=== PATIENT | female | born 1995 | race Caucasian/White ===

== ENCOUNTER 2018-01-13 15:12 | Emergency (ER) | payer SELFPAY ==
[2018-01-13] MEDS ORDERED: Rabies Vaccine Human 2.5 UNITS VIAL IM ONE (16:00)
[2018-01-13] MEDS ORDERED: Rabies Immune Globulin 1500 UNITS/10 ML VIAL IM SCH (16:00)
[2018-01-16] MEDS ORDERED: Rabies Vaccine Human 2.5 UNITS VIAL IM ONE (16:45)
== END 2018-01-13 17:56 | disposition home or self-care (01) ==
LOC: ERS 15:12
DX: S61.231A Puncture wound without foreign body of left index finger without damage to nail, initial encounter (principal); Z20.3 Contact with and (suspected) exposure to rabies; W55.01XA Bitten by cat, initial encounter
CPT/HCPCS: 90375; 90471; 90675; 96372

== ENCOUNTER → 2018-01-20 | Day surgery (SDC) | payer SELFPAY ==
[~2018-01-20] MED LIST: Rabies Vaccine Human 2.5 UNITS VIAL IM ONE
== END ==
LOC: ER/OP 14:55
PROVIDERS: ATTEND Physician Assistant
DX: Z23 Encounter for immunization (principal)
CPT/HCPCS: 90471; 90675

== ENCOUNTER → 2018-01-27 | Day surgery (SDC) | payer SELFPAY | LOC: ER/OP 16:48 | PROVIDERS: ATTEND Nurse Practitioner Family | DX: Z23 Encounter for immunization (principal) | CPT/HCPCS: 90471; 90675 ==

== ENCOUNTER → 2024-03-09 | Day surgery (SDC) | payer BC, SELFPAY ==
[~2024-03-09] MED LIST changes: +PALONOSETRON HCL 0.05 MG/ML 5 ML VIAL ONE; -Rabies Vaccine Human 2.5 UNITS VIAL IM ONE
[2024-03-09 09:59] VITALS: BP 141/74; TEMP 98
[2024-03-09] MEDS: PALONOSETRON HCL 0.05 MG/ML 5 ML VIAL IVP SCH (10:09)
[2024-03-09] MEDS: Fosaprepitant Dimeglumine 150 MG in 0.9 % Sodium Chloride 145 ML IVPB SCH (10:30)
[2024-03-09] MEDS: diphenhydrAMINE 50 MG in Sodium Chloride 0.9% 50 ML IVPB SCH (10:33)
[2024-03-09] MEDS: SODIUM CHLORIDE 0.9% IVPB SCH ×2 (11:27→11:28)
[2024-03-09] MEDS: DOCETAXEL IVPB SCH (11:27)
[2024-03-09] MEDS: CARBOPLATIN IVPB SCH (11:28)
== END ==
LOC: ONC/OP 08:39
PROVIDERS: ATTEND Internal Medicine Hematology & Oncology
DX: Z51.11 Encounter for antineoplastic chemotherapy (principal); C50.311 Malignant neoplasm of lower-inner quadrant of right female breast
CPT/HCPCS: 96367; 96375; 96376; 96413; 96417; J1100; J1200; J1453; J1642; J2469; J7050; J9045; J9171; Q5117

== ENCOUNTER 2024-03-30 08:57 | Day surgery (SDC) | payer BC, SELFPAY ==
[2024-03-30 09:26] VITALS: BP 140/70; TEMP 98.1
[2024-03-30] MEDS ORDERED: PALONOSETRON HCL 0.05 MG/ML 5 ML VIAL ONE (10:56)
[2024-03-30] MEDS: Fosaprepitant Dimeglumine 150 MG in 0.9 % Sodium Chloride 145 ML IVPB SCH (10:58)
[2024-03-30] MEDS: PALONOSETRON HCL 0.05 MG/ML 5 ML VIAL IVP SCH (10:58)
[2024-03-30] MEDS: SODIUM CHLORIDE 0.9% IVPB SCH ×3 (11:53→11:56)
[2024-03-30] MEDS: DOCETAXEL IVPB SCH (11:53)
[2024-03-30] MEDS: CARBOPLATIN IVPB SCH (11:55)
[2024-03-30] MEDS: TRASTUZUMAB ANNS IVPB SCH (11:56)
== END 2024-03-30 15:43 | disposition home or self-care (01) ==
LOC: ONC/OP 08:57
PROVIDERS: ATTEND Internal Medicine Hematology & Oncology
DX: Z51.11 Encounter for antineoplastic chemotherapy (principal); C50.311 Malignant neoplasm of lower-inner quadrant of right female breast
CPT/HCPCS: 96367; 96375; 96413; 96417; J1100; J1453; J1642; J2469; J7050; J9045; J9171; Q5117

== ENCOUNTER → 2024-04-20 | Day surgery (SDC) | payer BC ==
[~2024-04-20] MED LIST changes: +diphenhydrAMINE 25 MG CAP ONE; +diphenhydrAMINE 25 MG CAP PO SCH
[2024-04-20 10:13] VITALS: BP 140/70; TEMP 98.7
[2024-04-20] MEDS: PALONOSETRON HCL 0.05 MG/ML 5 ML VIAL IVP SCH (10:17)
[2024-04-20] MEDS: Fosaprepitant Dimeglumine 150 MG in 0.9 % Sodium Chloride 145 ML IVPB SCH (10:23)
[2024-04-20] MEDS: SODIUM CHLORIDE 0.9% IVPB SCH ×3 (11:16→11:18)
[2024-04-20] MEDS: TRASTUZUMAB ANNS IVPB SCH (11:16)
[2024-04-20] MEDS: CARBOPLATIN IVPB SCH (11:17)
[2024-04-20] MEDS: DOCETAXEL IVPB SCH (11:18)
== END ==
LOC: ONC/OP 09:18
PROVIDERS: ATTEND Internal Medicine Hematology & Oncology
DX: Z51.11 Encounter for antineoplastic chemotherapy (principal); C50.311 Malignant neoplasm of lower-inner quadrant of right female breast
CPT/HCPCS: 96367; 96375; 96413; 96417; J1100; J1453; J1642; J2469; J7050; J9045; J9171; Q5117

== ENCOUNTER 2024-04-21 14:02 | Day surgery (SDC) | payer BC ==
[2024-04-21] MEDS: PEGFILGRASTIM-JMDB 6 MG/0.6 ML SYRINGE SQ SCH (14:22)
[2024-04-21 14:26] VITALS: BP 131/63; TEMP 97.7
== END 2024-04-21 14:27 | disposition home or self-care (01) ==
LOC: ONC/OP 14:02
PROVIDERS: ATTEND Internal Medicine Hematology & Oncology
DX: C50.311 Malignant neoplasm of lower-inner quadrant of right female breast (principal)
CPT/HCPCS: 96372; Q5108

== ENCOUNTER 2024-05-11 08:59 | Day surgery (SDC) | payer BC ==
[2024-05-11] MEDS ORDERED: PALONOSETRON HCL 0.05 MG/ML 5 ML VIAL IVP SCH (09:15)
[2024-05-11] MEDS ORDERED: SODIUM CHLORIDE 0.9% IVPB SCH (09:15)
[2024-05-11] MEDS ORDERED: DOCETAXEL IVPB SCH (09:15)
[2024-05-11 09:40] VITALS: BP 147/73; TEMP 98.3
[2024-05-11] MEDS: diphenhydrAMINE 25 MG in Sodium Chloride 0.9% 50 ML IVPB SCH (10:34)
[2024-05-11] MEDS: Fosaprepitant Dimeglumine 150 MG in 0.9 % Sodium Chloride 145 ML IVPB SCH (10:34)
[2024-05-11] MEDS ORDERED: PALONOSETRON HCL 0.05 MG/ML 5 ML VIAL ONE (10:53)
[2024-05-11] MEDS: DOCETAXEL IVPB SCH (11:56)
[2024-05-11] MEDS: SODIUM CHLORIDE 0.9% IVPB SCH ×3 (11:56→12:01)
[2024-05-11] MEDS: CARBOPLATIN IVPB SCH (12:00)
[2024-05-11] MEDS: TRASTUZUMAB ANNS IVPB SCH (12:01)
== END 2024-05-11 15:52 | disposition home or self-care (01) ==
LOC: ONC/OP 08:59
PROVIDERS: ATTEND Internal Medicine Hematology & Oncology
DX: Z51.11 Encounter for antineoplastic chemotherapy (principal); C50.311 Malignant neoplasm of lower-inner quadrant of right female breast
CPT/HCPCS: 96367; 96375; 96413; 96417; J1100; J1200; J1453; J1642; J2469; J7050; J9045; J9171; Q5117

== ENCOUNTER 2024-05-12 12:15 | Day surgery (SDC) | payer BC ==
[2024-05-12] MEDS: PEGFILGRASTIM-JMDB 6 MG/0.6 ML SYRINGE SQ SCH (12:40)
[2024-05-12 12:58] VITALS: BP 145/67; TEMP 98
== END 2024-05-12 14:57 | disposition home or self-care (01) ==
LOC: ONC/OP 12:15
PROVIDERS: ATTEND Internal Medicine Hematology & Oncology
DX: C50.311 Malignant neoplasm of lower-inner quadrant of right female breast (principal)
CPT/HCPCS: 96372; Q5108

== ENCOUNTER 2024-06-01 08:59 | Day surgery (SDC) | payer BC ==
[2024-06-01] MEDS: Fosaprepitant Dimeglumine 150 MG in 0.9 % Sodium Chloride 145 ML IVPB SCH (10:25)
[2024-06-01 11:24] VITALS: BP 126/72; TEMP 98.2
[2024-06-01] MEDS ORDERED: PALONOSETRON HCL 0.05 MG/ML 5 ML VIAL ONE (11:33)
[2024-06-01] MEDS: PALONOSETRON HCL 0.05 MG/ML 5 ML VIAL IVP SCH (11:35)
[2024-06-01] MEDS: diphenhydrAMINE 25 MG in Sodium Chloride 0.9% 50 ML IVPB SCH (11:39)
[2024-06-01] MEDS: SODIUM CHLORIDE 0.9% IVPB SCH ×3 (13:40→13:41)
[2024-06-01] MEDS: DOCETAXEL IVPB SCH (13:40)
[2024-06-01] MEDS: CARBOPLATIN IVPB SCH (13:41)
[2024-06-01] MEDS: TRASTUZUMAB ANNS IVPB SCH (13:41)
== END 2024-06-01 16:42 | disposition home or self-care (01) ==
LOC: ONC/OP 08:59
PROVIDERS: ATTEND Internal Medicine Hematology & Oncology
DX: C50.311 Malignant neoplasm of lower-inner quadrant of right female breast (principal)
CPT/HCPCS: 96367; 96376; 96413; 96417; J1100; J1200; J1453; J1642; J2469; J7050; J9045; J9171; Q5117

== ENCOUNTER 2024-06-02 09:19 | Day surgery (SDC) | payer BC ==
[2024-06-02] MEDS: PEGFILGRASTIM-JMDB 6 MG/0.6 ML SYRINGE SQ SCH (09:29)
[2024-06-02 09:58] VITALS: BP 142/69; TEMP 97.9
== END 2024-06-02 10:35 | disposition home or self-care (01) ==
LOC: ONC/OP 09:19
PROVIDERS: ATTEND Internal Medicine Hematology & Oncology
DX: C50.311 Malignant neoplasm of lower-inner quadrant of right female breast (principal)
CPT/HCPCS: 96372; Q5108

== ENCOUNTER 2024-06-22 08:55 | Day surgery (SDC) | payer BC ==
[2024-06-22] MEDS ORDERED: TRASTUZUMAB ANNS IVPB SCH (09:15)
[2024-06-22] MEDS ORDERED: SODIUM CHLORIDE 0.9% IVPB SCH (09:15)
[2024-06-22 09:33] VITALS: BP 130/80; TEMP 98.5
[2024-06-22] MEDS ORDERED: Dexamethasone 10 MG/ML VIAL ONE (09:51)
[2024-06-22] MEDS ORDERED: PALONOSETRON HCL 0.05 MG/ML 5 ML VIAL ONE (09:51)
[2024-06-22] MEDS ORDERED: diphenhydrAMINE 50 MG/ML VIAL ONE (09:51)
[2024-06-22] MEDS: PALONOSETRON HCL 0.05 MG/ML 5 ML VIAL IVP SCH (09:53)
[2024-06-22] MEDS: Fosaprepitant Dimeglumine 150 MG in 0.9 % Sodium Chloride 145 ML IVPB SCH (09:53)
[2024-06-22] MEDS: Dexamethasone 10 MG/ML VIAL SLOW IVP SCH (09:53)
[2024-06-22] MEDS: diphenhydrAMINE 50 MG/ML VIAL IVP SCH (09:54)
[2024-06-22] MEDS: SODIUM CHLORIDE 0.9% IVPB SCH ×3 (11:03→11:05)
[2024-06-22] MEDS: TRASTUZUMAB ANNS IVPB SCH (11:03)
[2024-06-22] MEDS: DOCETAXEL IVPB SCH (11:04)
[2024-06-22] MEDS: CARBOPLATIN IVPB SCH (11:05)
== END 2024-06-22 14:02 | disposition home or self-care (01) ==
LOC: ONC/OP 08:55
PROVIDERS: ATTEND Internal Medicine Hematology & Oncology
DX: Z51.11 Encounter for antineoplastic chemotherapy (principal); C50.311 Malignant neoplasm of lower-inner quadrant of right female breast
CPT/HCPCS: 96367; 96375; 96413; 96417; J1100; J1200; J1453; J1642; J2469; J7050; J9045; J9171; Q5117

== ENCOUNTER 2024-06-23 15:50 | Day surgery (SDC) | payer BC ==
[2024-06-23] MEDS: PEGFILGRASTIM-JMDB 6 MG/0.6 ML SYRINGE SQ SCH (15:57)
[2024-06-23 16:03] VITALS: BP 145/67; TEMP 97.6
== END 2024-06-23 16:11 | disposition home or self-care (01) ==
LOC: ONC/OP 15:50
PROVIDERS: ATTEND Internal Medicine Hematology & Oncology
DX: C50.311 Malignant neoplasm of lower-inner quadrant of right female breast (principal)
CPT/HCPCS: 96372; Q5108

== ENCOUNTER 2025-03-04 11:36 | Outpatient (CLI) | payer BC | END 2025-03-04 11:37 | disposition home or self-care (01) | LOC: BICRAD 11:36 | PROVIDERS: ATTEND Internal Medicine | DX: C50.311 Malignant neoplasm of lower-inner quadrant of right female breast (principal); R91.8 Other nonspecific abnormal finding of lung field | CPT/HCPCS: 71046 ==